=== PATIENT | male | born 1945 | race Caucasian/White ===

== ENCOUNTER 2017-10-20 17:02 | Emergency (ER) | payer MEDICARE, OTHER ==
[~2017-10-20] VITALS: Ht 177.8 cm; Wt 90.7 kg
[~2017-10-20 17:02] MED LIST: CYCL10 PO; HYDACE5 PO; NAPR500 PO; PRED20 PO
[2017-10-20] MEDS ORDERED: Percocet 5-3251 EACH PO (19:17)
[2017-10-20] MEDS ORDERED: LIDO700A20 TOP (19:17)
[2017-10-20] MEDS ORDERED: Valium5 MG PO (19:17)
== END 2017-10-20 20:22 | disposition home or self-care (01) ==
LOC: ER 17:02
DX: M54.5 Low back pain (principal); I10 Essential (primary) hypertension; K21.9 Gastro-esophageal reflux disease without esophagitis; Z88.2 Allergy status to sulfonamides; Z79.891 Long term (current) use of opiate analgesic; Z79.899 Other long term (current) drug therapy; Z79.1 Long term (current) use of non-steroidal anti-inflammatories (NSAID)
CPT/HCPCS: 96372; 99283; J1170

== ENCOUNTER → 2017-12-06 | Outpatient (CLI) | payer MEDICARE, OTHER ==
[~2017-12-06] MED LIST changes: +LIDO700A20 TOP; +Percocet 5-3251 EACH PO; +Valium5 MG PO
== END ==
LOC: LAB SHORT 18:00 → LAB 18:00
DX: R19.7 Diarrhea, unspecified (principal); R27.0 Ataxia, unspecified; R41.3 Other amnesia; R25.1 Tremor, unspecified
CPT/HCPCS: 87015; 87045; 87046; 87177; 87205; 87209; 87329; 87493; 87899

== ENCOUNTER → 2017-12-08 | Outpatient (CLI) | payer MEDICARE, OTHER | LOC: LAB 09:45 → LAB SHORT 09:45 | DX: R27.0 Ataxia, unspecified (principal); R41.3 Other amnesia; R25.1 Tremor, unspecified; R19.7 Diarrhea, unspecified | CPT/HCPCS: 87177; 87209 ==

== ENCOUNTER → 2018-05-28 | Outpatient (CLI) | payer MEDICARE, OTHER ==
[2018-05-31 15:30] LABS: Stool Occult Bld Immuno 1 Negative (NEGATIVE); Stool Occult Bld Immuno 2 Negative (NEGATIVE); Stool Occult Bld Immuno 3 Negative (NEGATIVE)
== END | disposition home or self-care (01) ==
LOC: LAB SHORT 15:00 → LAB 15:00
PROVIDERS: Family Medicine
DX: K92.1 Melena (principal)
CPT/HCPCS: 82274

== ENCOUNTER 2025-07-11 08:07 | Emergency (ER) | payer OTHER ==
[~2025-07-11] VITALS: Ht 185.4 cm; Wt 80.7 kg
[2025-07-11 08:42] LABS: BASOPHILS ABSOLUTE AUTO 0.04 K/mm3 (0.00-0.23); BASOPHILS PERCENT AUTO 1 % (0-2); EOSINOPHILS ABSOLUTE AUTO 0.03 K/mm3 (0.00-0.68); EOSINOPHILS PERCENT AUTO 1 % (0-6); Hematocrit 41.1 % (37.0-53.0); Hemoglobin 13.1 g/dL (13.5-17.5); IMMATURE GRAN ABSOLUTE AUTO 0.02 K/mm3 (0.00-0.10); IMMATURE GRAN PERCENT AUTO 0 % (0-1); LYMPHOCYTES ABSOLUTE AUTO 0.77 K/mm3 (0.84-5.20); LYMPHOCYTES PERCENT AUTO 14 % (21-46); MONOCYTES ABSOLUTE AUTO 0.47 K/mm3 (0.16-1.47); MONOCYTES PERCENT AUTO 9 % (4-13); Mean Corpuscular HGB Conc 31.9 g/dL (31.5-36.5); Mean Corpuscular Volume 91 fL (80-100); NEUTROPHILS ABSOLUTE AUTO 4.22 K/mm3 (1.96-9.15); NEUTROPHILS PERCENT AUTO 76 % (41-73); NRBC ABSOLUTE 0.00 K/mm3 (0.00-0.02); NRBC Auto 0.0 /100 WBC (0.0-0.2); Platelet Count 134 K/mm3 (150-400); RDW Coefficient Variation 13.0 % (11.7-14.2); RDW Standard Deviation 43.3 fL (35.1-46.3)
[2025-07-11] MEDS ORDERED: NS 1,000 ML IV SCH (08:55)
[2025-07-11 08:58] LABS: Alanine Aminotransfer (ALT/SGP 28.0 U/L (12-78); Albumin, Blood 3.2 g/dL (3.4-5.0); Albumin/Globulin Ratio 1.0 (0.8-1.8); Anion Gap 3.0 mmol/L (3-11); Aspartate Aminotrans (AST/SGOT 20.0 U/L (12-37); Bilirubin, Total 0.3 mg/dL (0.1-1.0); Blood Urea Nitrogen 20.0 mg/dL (8-24); CO2, Blood 32.0 mmol/L (21-32); Calcium, Blood 8.8 mg/dL (8.5-10.1); Chloride, Blood 107.0 mmol/L (98-108); Creatinine, Blood 1.17 mg/dL (0.60-1.20); Globulin, Blood 3.2 g/dL (2.2-4.0); Glucose, Blood 115.0 mg/dL (70-99); Potassium, Blood 4.0 mmol/L (3.5-5.5); Sodium, Blood 138.0 mmol/L (136-145); Total Protein, Blood 6.4 g/dL (6.4-8.2)
[2025-07-11 09:25] LABS: Source, Urine Clean Catch
[2025-07-11 09:31] LABS: Bilirubin, Urine Neg (Neg); Color, Urine Yellow (P-Yellow); Glucose Qualitative, Urine Neg (Neg); Ketones, Urine Neg (Neg); Leukocyte Esterase, Urine Neg (Neg); Protein, Urine 2+ (Neg); Specific Gravity, Urine 1.020 (1.003-1.022); Urobilinogen, Urine NORM (Normal)
[2025-07-11 09:40] LABS: White Blood Cells, Urine 0-2 /hpf (0-5)
[2025-07-11 10:45] VITALS: BP 105/62
== END 2025-07-11 10:58 | disposition home or self-care (01) ==
LOC: ER 08:07
PROVIDERS: Student in an Organized Health Care Education/Training Program
DX: R53.1 Weakness (principal); R73.9 Hyperglycemia, unspecified; E88.09 Other disorders of plasma-protein metabolism, not elsewhere classified; D64.9 Anemia, unspecified; D69.6 Thrombocytopenia, unspecified; D72.819 Decreased white blood cell count, unspecified; D72.810 Lymphocytopenia; R80.9 Proteinuria, unspecified; R31.9 Hematuria, unspecified; I10 Essential (primary) hypertension; K21.9 Gastro-esophageal reflux disease without esophagitis; Z87.891 Personal history of nicotine dependence; Z88.2 Allergy status to sulfonamides; Z79.899 Other long term (current) drug therapy
CPT/HCPCS: 71046; 80053; 81001; 84484; 85025; 93005; 93010; 96360; 96361; 99285-25; J7030

== ENCOUNTER 2025-07-22 08:47 | Inpatient (IN) | payer OTHER ==
[~2025-07-22] VITALS: Ht 185.4 cm; Wt 80.0 kg
[2025-07-22] MEDS ORDERED: PROPRANOLOL HCL60 MG PO (09:07)
[2025-07-22] MEDS ORDERED: AMLODIPINE-BEN1 EAC2 PO (09:07)
[2025-07-22] MEDS ORDERED: OMEP20ER PO (09:07)
[2025-07-22] MEDS ORDERED: CITALOPRAM HBR20 M9 PO (09:07)
[2025-07-22] MEDS ORDERED: Lidocaine 2% Jelly Uro-Jet UR ONE (09:15)
[2025-07-22 10:27] LABS: BASOPHILS ABSOLUTE AUTO 0.05 K/mm3 (0.00-0.23); BASOPHILS PERCENT AUTO 0 % (0-2); EOSINOPHILS ABSOLUTE AUTO 0.00 K/mm3 (0.00-0.68); EOSINOPHILS PERCENT AUTO 0 % (0-6); Hematocrit 33.7 % (37.0-53.0); Hemoglobin 11.3 g/dL (13.5-17.5); IMMATURE GRAN ABSOLUTE AUTO 0.07 K/mm3 (0.00-0.10); IMMATURE GRAN PERCENT AUTO 1 % (0-1); LYMPHOCYTES ABSOLUTE AUTO 0.82 K/mm3 (0.84-5.20); LYMPHOCYTES PERCENT AUTO 6 % (21-46); MONOCYTES ABSOLUTE AUTO 1.04 K/mm3 (0.16-1.47); MONOCYTES PERCENT AUTO 7 % (4-13); Mean Corpuscular HGB Conc 33.5 g/dL (31.5-36.5); Mean Corpuscular Volume 86 fL (80-100); NEUTROPHILS ABSOLUTE AUTO 12.11 K/mm3 (1.96-9.15); NEUTROPHILS PERCENT AUTO 86 % (41-73); NRBC ABSOLUTE 0.00 K/mm3 (0.00-0.02); NRBC Auto 0.0 /100 WBC (0.0-0.2); Platelet Count 248 K/mm3 (150-400); RDW Coefficient Variation 12.5 % (11.7-14.2); RDW Standard Deviation 39.3 fL (35.1-46.3)
[2025-07-22] MEDS ORDERED: CefTRIAXone Sodium 1,000 MG in NS 100 ML IV ONE (10:40)
[2025-07-22 10:50] LABS: Source, Urine Clean Catch
[2025-07-22] MEDS ORDERED: NS 1,000 ML IV SCH ×2 (10:50→12:00)
[2025-07-22 10:54] LABS: Bilirubin, Urine Neg (Neg); Color, Urine Yellow (P-Yellow); Glucose Qualitative, Urine Neg (Neg); Ketones, Urine Neg (Neg); Leukocyte Esterase, Urine 1+ (Neg); Protein, Urine 2+ (Neg); Specific Gravity, Urine 1.015 (1.003-1.022); Urobilinogen, Urine 2+ (Normal)
[2025-07-22 11:00] LABS: Alanine Aminotransfer (ALT/SGP 97.0 U/L (12-78); Albumin, Blood 2.7 g/dL (3.4-5.0); Albumin/Globulin Ratio 0.7 (0.8-1.8); Anion Gap 13.0 mmol/L (3-11); Aspartate Aminotrans (AST/SGOT 138.0 U/L (12-37); Bilirubin, Total 1.1 mg/dL (0.1-1.0); Blood Urea Nitrogen 22.0 mg/dL (8-24); CO2, Blood 24.0 mmol/L (21-32); Calcium, Blood 8.0 mg/dL (8.5-10.1); Chloride, Blood 95.0 mmol/L (98-108); Creatinine, Blood 1.19 mg/dL (0.60-1.20); Globulin, Blood 3.8 g/dL (2.2-4.0); Glucose, Blood 121.0 mg/dL (70-99); Potassium, Blood 4.3 mmol/L (3.5-5.5); Sodium, Blood 128.0 mmol/L (136-145); Total Protein, Blood 6.5 g/dL (6.4-8.2)
[2025-07-22 11:10] LABS: Red Blood Cells, Urine 25-50 /hpf (0-2)
[2025-07-22] MEDS ORDERED: Magnesium Hydroxide Conc 10 ML UDC PO PRN (11:45)
[2025-07-22] MEDS ORDERED: FLU VACC TS2025(65UP)/MF59C/PF 45 MCG/0.5 ML SYRINGE IM SCH (11:55)
[2025-07-22 13:34] LABS: Anion Gap 9.0 mmol/L (3-11); Blood Urea Nitrogen 22.0 mg/dL (8-24); CO2, Blood 27.0 mmol/L (21-32); Calcium, Blood 8.0 mg/dL (8.5-10.1); Chloride, Blood 97.0 mmol/L (98-108); Creatinine, Blood 1.16 mg/dL (0.60-1.20); Glucose, Blood 112.0 mg/dL (70-99); Potassium, Blood 4.1 mmol/L (3.5-5.5); Sodium, Blood 129.0 mmol/L (136-145)
--- NOTE | 2025-07-22 13:34 | NUR ---
PALLIATIVE CONSULT RECEIVED FOR AD/POLST. PT IS CURRENTLY A FULL CODE, IN WITH GLF/WEAKNESS.
[2025-07-22 14:28] VITALS: BP 119/59
[2025-07-22 15:31] LABS: Thyroid Stimulating Hormone 1.43 uIU/mL (0.360-4.800)
[2025-07-22 15:56] LABS: Osmolality, Serum 273.0 mos/KG (275-300)
--- NOTE | 2025-07-22 18:30 | NUR ---
ADMISSION AND SHIFT SUMMARY PATIENT ADMITTED WITH UTI. PATIENT STATES THAT HE HAS BEEN FALLING AT HOME AND HAS DECLINED OVER THE LAST FEW WEEKS. PATIENT STATES THAT HE HAS BEEN IN THE ED A FEW TIMES AND DISCHARGED HOME. PATIENT WEAK, STATES THAT HE HAS NOT REALLY EATEN OR DRANK ANYTHING FOR DAYS. BRUISING AND ABRASIONS NOTED ON HIS FACE. PATIENT STATES THAT HE HAD FALLEN MULTIPLE TIMES AT HOME. ER PLACED A GRIFFIN BECAUSE OF URINARY RETENTION. LEG BAG ATTACHED TO CATHETER ON ARRIVAL TO MEDICAL FLOOR WITH DARK TEA COLORED URINE. CHANGED TO DRAINAGE BAG. NO OTHER SKIN ISSUES NOTED. PATIENT POSITIVE FOR UTI. PT AND OT TO EVALUATE.
[2025-07-22 19:42] LABS: Anion Gap 9.0 mmol/L (3-11); Blood Urea Nitrogen 22.0 mg/dL (8-24); CO2, Blood 27.0 mmol/L (21-32); Calcium, Blood 8.0 mg/dL (8.5-10.1); Chloride, Blood 97.0 mmol/L (98-108); Creatinine, Blood 1.06 mg/dL (0.60-1.20); Glucose, Blood 117.0 mg/dL (70-99); Potassium, Blood 3.9 mmol/L (3.5-5.5); Sodium, Blood 129.0 mmol/L (136-145)
[2025-07-22 19:45] VITALS: BP 112/60
[2025-07-22] MEDS ORDERED: Lactobacil 2-S.Thermo-Bifido 1 1 Cap PO SCH (21:00)
[2025-07-23 00:17] VITALS: BP 104/60
--- NOTE | 2025-07-23 00:27 | NUR ---
GRIFFIN AT APPROX 0010 ORDER RUNNER CALLED THIS RN INTO PT RM. PT HAD PULLED OUT GRIFFIN CATH W/BALLOON INTACT. PT REPORTING DISCOMFORT AT HIS PENIS, SM AMOUNT PINKISH TO RED DRAINAGE NOTED ON ACUNA. PT AOX3-STATES HE IS FORGETFUL @TIMES, & DOESNT REMEMBER PULLING OUT THE CATHETER. VSS, PT CLEANSED, ATTENDS APPLIED, WILL INFORM PRIMARY RN OF GRIFFIN REMOVAL.
[2025-07-23 01:39] LABS: Anion Gap 10.0 mmol/L (3-11); Blood Urea Nitrogen 21.0 mg/dL (8-24); CO2, Blood 24.0 mmol/L (21-32); Calcium, Blood 7.9 mg/dL (8.5-10.1); Chloride, Blood 99.0 mmol/L (98-108); Creatinine, Blood 1.07 mg/dL (0.60-1.20); Glucose, Blood 115.0 mg/dL (70-99); Potassium, Blood 3.8 mmol/L (3.5-5.5); Sodium, Blood 129.0 mmol/L (136-145)
--- NOTE | 2025-07-23 03:58 | NUR ---
SHIFT SUMMARY ADMITTED FOR UTI. FULL CODE. IV ANTIB RX ARE SCHEDULED. HE IS A&O X3, BUT HAS PERIODS OF CONFUSION. HE DID PULL OUT HIS GRIFFIN THIS SHIFT. HE HAS URINATED SINCE. INCONTINENT, ATTENDS IN PLACE. MINIMAL BLOOD LOSS FROM PENIS. HE NOTES SOME PAIN IN THE AFFECTED AREA. HE DOES NOT KNOW OR REMEMBER WHY HE PULLED OUT THE GRIFFIN. TELEMETRY: NSR @ 70 BPM. REGULAR DIET, ON RA. HX: ESSENTIAL TREMORS, GLF'S.
[2025-07-23] MEDS ORDERED: Vancomycin (Pharmacy Consult) IV PRN (04:15)
[2025-07-23] MEDS ORDERED: NS 250 ML IV PRN (04:55)
[2025-07-23 06:58] LABS: BASOPHILS ABSOLUTE AUTO 0.06 K/mm3 (0.00-0.23); BASOPHILS PERCENT AUTO 1 % (0-2); EOSINOPHILS ABSOLUTE AUTO 0.01 K/mm3 (0.00-0.68); EOSINOPHILS PERCENT AUTO 0 % (0-6); Hematocrit 30.6 % (37.0-53.0); Hemoglobin 9.9 g/dL (13.5-17.5); IMMATURE GRAN ABSOLUTE AUTO 0.07 K/mm3 (0.00-0.10); IMMATURE GRAN PERCENT AUTO 1 % (0-1); LYMPHOCYTES ABSOLUTE AUTO 1.77 K/mm3 (0.84-5.20); LYMPHOCYTES PERCENT AUTO 14 % (21-46); MONOCYTES ABSOLUTE AUTO 1.10 K/mm3 (0.16-1.47); MONOCYTES PERCENT AUTO 9 % (4-13); Mean Corpuscular HGB Conc 32.4 g/dL (31.5-36.5); Mean Corpuscular Volume 87 fL (80-100); NEUTROPHILS ABSOLUTE AUTO 9.41 K/mm3 (1.96-9.15); NEUTROPHILS PERCENT AUTO 76 % (41-73); NRBC ABSOLUTE 0.00 K/mm3 (0.00-0.02); NRBC Auto 0.0 /100 WBC (0.0-0.2); Platelet Count 202 K/mm3 (150-400); RDW Coefficient Variation 12.6 % (11.7-14.2); RDW Standard Deviation 40.6 fL (35.1-46.3)
[2025-07-23 07:23] LABS: Alanine Aminotransfer (ALT/SGP 95.0 U/L (12-78); Albumin, Blood 2.4 g/dL (3.4-5.0); Albumin/Globulin Ratio 0.7 (0.8-1.8); Anion Gap 10.0 mmol/L (3-11); Aspartate Aminotrans (AST/SGOT 117.0 U/L (12-37); Bilirubin, Total 0.9 mg/dL (0.1-1.0); Blood Urea Nitrogen 20.0 mg/dL (8-24); CO2, Blood 24.0 mmol/L (21-32); Calcium, Blood 7.7 mg/dL (8.5-10.1); Chloride, Blood 99.0 mmol/L (98-108); Creatinine, Blood 1.03 mg/dL (0.60-1.20); Globulin, Blood 3.3 g/dL (2.2-4.0); Glucose, Blood 104.0 mg/dL (70-99); Potassium, Blood 3.7 mmol/L (3.5-5.5); Sodium, Blood 129.0 mmol/L (136-145); Total Protein, Blood 5.7 g/dL (6.4-8.2)
--- NOTE | 2025-07-23 07:32 | NUR ---
[facility] NOTIFY- SPOKE TO DR. VALLADARES TO NOTIFY. ADVISES NO CHANGES TO PLAN OF CARE.
[2025-07-23 07:47] VITALS: BP 117/70
[2025-07-23] MEDS ORDERED: Enoxaparin 40 MG/0.4 ML SYR SC SCH (09:00)
[2025-07-23] MEDS ORDERED: CefTRIAXone Sodium 1,000 MG in NS 100 ML IV SCH (09:00)
[2025-07-23] MEDS ORDERED: Lidocaine 2% Jelly Uro-Jet UR ONE (09:15)
[2025-07-23 12:07] VITALS: BP 102/62
[2025-07-23 16:40] VITALS: BP 102/64
[2025-07-23] MEDS ORDERED: Propofol 10mg/ml 20 ml Vial (Procedural) IV ONE (16:57)
--- NOTE | 2025-07-23 20:06 | NUR ---
SHIFT SUMMARY PATIENT ALERT AND INTERACTIVE BUT DEPRESSED. PATIENT VERBALIZING THAT HE FEELS LIKE HE IS DYING AND NOT GOING TO MAKE IT OUT OF THE HOSPITAL. PATIENT REQUESTING TO HAVE TILE FITTER PROVIDE LAST RIGHTS/ANOINTING OF THE SICK. ATTEMPTED TO CALL EPISCOPALIAN [employer]GL[employer]. 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 PATIENT UP OOB WITH THERAPY TODAY. PATIENT WEAK BUT ABLE TO AMBULATE. ESSENTIAL TREMORS CONTINUE TO BE PRESENT. PATIENT HAD SOME RETENTION THIS MORNING AND WAS PREPARING TO STRAIGHT CATH AND PATIENT WAS ABLE TO VOID. CONTINUE TO MONITOR FOR RETENTION. SUPPLIES REMAIN IN THE ROOM IF NEEDED. BRUISING AND ABRASIONS ON FACE IMPROVING. CASE MANAGEMENT UPDATED RELATED TO DISCHARGE CONCERNS BECAUSE PATIENT LIVES ALONE AND FREQUENT FALLS PRIOR TO ADMISSION
[2025-07-23 21:15] VITALS: BP 109/58
[2025-07-24 00:26] VITALS: BP 97/63
[2025-07-24 04:14] VITALS: BP 106/63
--- NOTE | 2025-07-24 06:36 | NUR ---
SHIFT SUMMARY A&OX4 WITH INTERMITTENT CONFUSION/FORGETFULLNESS. PT ABLE TO MAKE NEEDS KNOWN. DID HAVE SOME LOWER BACK PAIN AT START OF SHIFT. PT REPOSITIONED FOR COMFORT AND MEDICATED PER EMAR. PT WAS ABLE REST FOR AWHILE AFTER PAIN MEDICATION. PUREWICK IS IN PLACE AND DRAINING. PT FELT LIKE HE NEEDED TO HAVE A BM SO PT TRANSFERRED W/FWW TO BS. PT HAD GAS BUT WAS NOT ABLE TO HAVE A BM. HE HAS BEEN PLEASANT AND COOPERATIVE WITH CARE. HIS ESSENTIAL TREMORS REMAIN PRESENT, ESPECIALLY WITH MOVEMENT. HE IS TOLERATING HIS VANCOMYCIN WELL W/O COMPLAINT. PT IS CURRENTLY RESTING IN HIS BED AT LOWEST POSITION WITH CALL LIGHT WITHIN REACH.
[2025-07-24 07:18] LABS: BASOPHILS ABSOLUTE AUTO 0.06 K/mm3 (0.00-0.23); BASOPHILS PERCENT AUTO 1 % (0-2); EOSINOPHILS ABSOLUTE AUTO 0.08 K/mm3 (0.00-0.68); EOSINOPHILS PERCENT AUTO 1 % (0-6); Hematocrit 31.4 % (37.0-53.0); Hemoglobin 10.2 g/dL (13.5-17.5); IMMATURE GRAN ABSOLUTE AUTO 0.05 K/mm3 (0.00-0.10); IMMATURE GRAN PERCENT AUTO 1 % (0-1); LYMPHOCYTES ABSOLUTE AUTO 1.20 K/mm3 (0.84-5.20); LYMPHOCYTES PERCENT AUTO 14 % (21-46); MONOCYTES ABSOLUTE AUTO 0.74 K/mm3 (0.16-1.47); MONOCYTES PERCENT AUTO 8 % (4-13); Mean Corpuscular HGB Conc 32.5 g/dL (31.5-36.5); Mean Corpuscular Volume 88 fL (80-100); NEUTROPHILS ABSOLUTE AUTO 6.66 K/mm3 (1.96-9.15); NEUTROPHILS PERCENT AUTO 76 % (41-73); NRBC ABSOLUTE 0.00 K/mm3 (0.00-0.02); NRBC Auto 0.0 /100 WBC (0.0-0.2); Platelet Count 188 K/mm3 (150-400); RDW Coefficient Variation 12.2 % (11.7-14.2); RDW Standard Deviation 39.5 fL (35.1-46.3)
[2025-07-24 07:34] LABS: Anion Gap 7.0 mmol/L (3-11); Blood Urea Nitrogen 20.0 mg/dL (8-24); CO2, Blood 27.0 mmol/L (21-32); Calcium, Blood 8.4 mg/dL (8.5-10.1); Chloride, Blood 103.0 mmol/L (98-108); Creatinine, Blood 1.04 mg/dL (0.60-1.20); Glucose, Blood 109.0 mg/dL (70-99); Potassium, Blood 3.5 mmol/L (3.5-5.5); Sodium, Blood 133.0 mmol/L (136-145)
[2025-07-24 07:49] VITALS: BP 111/67
--- NOTE | 2025-07-24 11:40 | NUR ---
[facility] NURSING MECHANICAL AND [employer]O BODY CAR CHECKER WAS ABLE TO CONTACT A TELECOMMUNICATIONS CONSULTANT. HE DID COME AND SEE PT. CARE ONGOING.
[2025-07-24 15:30] VITALS: BP 108/61
[2025-07-24 16:18] LABS: Vancomycin, Trough 18.2 ug/mL (5.0-10.0)
--- NOTE | 2025-07-24 18:39 | NUR ---
NOTE PT MORE INMTERACTIVE TODAY. STILL MAKING COMMENTS LIKE, " I WANT YOU TO PUT ME DOWN." "THE YOUNGER GENRATION JUST WANTS ME TO ." PT EATING SMALL AMOUNTS. HE DID ASK FOR ICE CREAM TONIGHT. VSS. HE IS WORRIED ABOUT HIS DOG. PT HAVING TROUBLE HOLDING UTENSILS D/T HAND TREMOR. NEEDS MEALS ASSIST. LIDS ON CUPS. P/T DID SEE HIM TODAY. BED LOW AND LOCKED. CALL LIGHT WITH INREACH.
[2025-07-24 19:35] VITALS: BP 115/77
[2025-07-25] VITALS (7 sets, daily range): BP systolic 110–123; BP diastolic 66–79
[2025-07-25 05:35] LABS: BASOPHILS ABSOLUTE AUTO 0.08 K/mm3 (0.00-0.23); BASOPHILS PERCENT AUTO 1 % (0-2); EOSINOPHILS ABSOLUTE AUTO 0.13 K/mm3 (0.00-0.68); EOSINOPHILS PERCENT AUTO 2 % (0-6); Hematocrit 32.4 % (37.0-53.0); Hemoglobin 10.8 g/dL (13.5-17.5); IMMATURE GRAN ABSOLUTE AUTO 0.05 K/mm3 (0.00-0.10); IMMATURE GRAN PERCENT AUTO 1 % (0-1); LYMPHOCYTES ABSOLUTE AUTO 1.20 K/mm3 (0.84-5.20); LYMPHOCYTES PERCENT AUTO 15 % (21-46); MONOCYTES ABSOLUTE AUTO 0.59 K/mm3 (0.16-1.47); MONOCYTES PERCENT AUTO 7 % (4-13); Mean Corpuscular HGB Conc 33.3 g/dL (31.5-36.5); Mean Corpuscular Volume 86 fL (80-100); NEUTROPHILS ABSOLUTE AUTO 6.11 K/mm3 (1.96-9.15); NEUTROPHILS PERCENT AUTO 75 % (41-73); NRBC ABSOLUTE 0.00 K/mm3 (0.00-0.02); NRBC Auto 0.0 /100 WBC (0.0-0.2); Platelet Count 221 K/mm3 (150-400); RDW Coefficient Variation 12.4 % (11.7-14.2); RDW Standard Deviation 39.4 fL (35.1-46.3)
[2025-07-25 06:14] LABS: Alanine Aminotransfer (ALT/SGP 87.0 U/L (12-78); Albumin, Blood 2.4 g/dL (3.4-5.0); Albumin/Globulin Ratio 0.7 (0.8-1.8); Anion Gap 7.0 mmol/L (3-11); Aspartate Aminotrans (AST/SGOT 75.0 U/L (12-37); Bilirubin, Total 0.6 mg/dL (0.1-1.0); Blood Urea Nitrogen 16.0 mg/dL (8-24); CO2, Blood 27.0 mmol/L (21-32); Calcium, Blood 8.6 mg/dL (8.5-10.1); Chloride, Blood 105.0 mmol/L (98-108); Creatinine, Blood 1.0 mg/dL (0.60-1.20); Globulin, Blood 3.6 g/dL (2.2-4.0); Glucose, Blood 107.0 mg/dL (70-99); Potassium, Blood 3.4 mmol/L (3.5-5.5); Sodium, Blood 136.0 mmol/L (136-145); Total Protein, Blood 6.0 g/dL (6.4-8.2)
--- NOTE | 2025-07-25 06:18 | NUR ---
SHIFT SUMMARY A&OX4. ABLE TO MAKE NEEDS KNOWN. DENIES PAIN. GOT UP TO BSC AND HAD A VERY SMALL BM. PT VOCALIZED HOW NICE IT FELT TO BE OUT OF BED. HE IS TOLERATING HIS VACOMYCIN INFUSIONS WELL. NO NEW EVENTS. PT WAS ABLE TO REST COMFORTABLY THOUGHOUT THE NIGHT. CURRENTLY PT IS SLEEPING IN BED AT LOWEST POSITION WITH CALL LIGHT WITHIN REACH.
[2025-07-25] MEDS ORDERED: CefTRIAXone Sodium 2,000 MG in NS 100 ML IV SCH (09:00)
[2025-07-26 03:46] VITALS: BP 129/74
[2025-07-26 05:37] LABS: BASOPHILS ABSOLUTE AUTO 0.06 K/mm3 (0.00-0.23); BASOPHILS PERCENT AUTO 1 % (0-2); EOSINOPHILS ABSOLUTE AUTO 0.19 K/mm3 (0.00-0.68); EOSINOPHILS PERCENT AUTO 2 % (0-6); Hematocrit 32.9 % (37.0-53.0); Hemoglobin 10.7 g/dL (13.5-17.5); IMMATURE GRAN ABSOLUTE AUTO 0.06 K/mm3 (0.00-0.10); IMMATURE GRAN PERCENT AUTO 1 % (0-1); LYMPHOCYTES ABSOLUTE AUTO 0.93 K/mm3 (0.84-5.20); LYMPHOCYTES PERCENT AUTO 11 % (21-46); MONOCYTES ABSOLUTE AUTO 0.47 K/mm3 (0.16-1.47); MONOCYTES PERCENT AUTO 6 % (4-13); Mean Corpuscular HGB Conc 32.5 g/dL (31.5-36.5); Mean Corpuscular Volume 87 fL (80-100); NEUTROPHILS ABSOLUTE AUTO 6.61 K/mm3 (1.96-9.15); NEUTROPHILS PERCENT AUTO 80 % (41-73); NRBC ABSOLUTE 0.00 K/mm3 (0.00-0.02); NRBC Auto 0.0 /100 WBC (0.0-0.2); Platelet Count 256 K/mm3 (150-400); RDW Coefficient Variation 12.5 % (11.7-14.2); RDW Standard Deviation 39.8 fL (35.1-46.3)
[2025-07-26 06:02] LABS: Anion Gap 9.0 mmol/L (3-11); Blood Urea Nitrogen 12.0 mg/dL (8-24); CO2, Blood 26.0 mmol/L (21-32); Calcium, Blood 8.5 mg/dL (8.5-10.1); Chloride, Blood 105.0 mmol/L (98-108); Creatinine, Blood 0.89 mg/dL (0.60-1.20); Glucose, Blood 109.0 mg/dL (70-99); Potassium, Blood 3.8 mmol/L (3.5-5.5); Sodium, Blood 136.0 mmol/L (136-145)
--- NOTE | 2025-07-26 06:08 | NUR ---
PT WAS A&OX4 AT THE BEGINNING OF THE SHIFT, IN THE MIDDLE OF THE SHIFT PT BECAME CONFUSED CALLING OUT FOR PEOPLE. STAFF UNABLE TO REORIENT PT AT TIMES.
[2025-07-26 08:25] VITALS: BP 101/67
[2025-07-26 16:15] VITALS: BP 134/76
--- NOTE | 2025-07-26 18:37 | NUR ---
SHIFT SUMMARY PT IS A/OX4, FORGETFUL AT TIMES. PT INCREASINGLY MORE CONFUSED ABOUT 1800 THIS EVENING. PT OUT OF BED AND STATING THAT AN EXPLOSION HAD OCCURRED ACROSS THE CHANG, HOWEVER WAS STILL ORIENTED TO PLACE, TIME, AND PERSON AND EASILY REDIRECTABLE. UP WITH SBA WITH FWW. USING URINAL AT BEDSIDE. ON TELE RUNNING NORMAL SINUS RYTHYM IN THE 80'S.
[2025-07-26 19:47] VITALS: BP 121/78
[2025-07-26 20:50] VITALS: BP 112/65
[2025-07-26 23:18] VITALS: BP 103/88
[2025-07-27 03:12] VITALS: BP 132/68
--- NOTE | 2025-07-27 06:07 | NUR ---
NO ACUTE EVENTS OVERNIGHT. PT WAS TRANSFERRED TO PCU FROM MEDICAL FLOOR PER PHYSICIAN'S REQUEST D/T PT HAVING A OEDLL TODAY. PT HAS BEEN NPO SINCE MIDNIGHT. PT NEEDS SBA WITH FWW TO BATHROOM. PT USES URINAL WHILE IN BATHROOM APPROPRIATELY. PT HAS ESSENTIAL TREMORS. EXPRESSES NEEDS AND CALLS APPROPRIATELY. BED ALARM ON. BED LOCKED IN LOWEST POSITION. CALL LIGHT WITHIN REACH.
[2025-07-27 07:51] VITALS: BP 120/81
[2025-07-27 11:54] VITALS: BP 115/65
[2025-07-27] MEDS ORDERED: Lidocaine 2% Viscous Soln 20 ML,Nystatin 100,000 Unit/ml Susp 20 ML,Mag Hydrox/Al Hydro... MT SCH (12:00)
[2025-07-27] MEDS ORDERED: Petrolatum/Mineral Oil/Lanolin 1 APPLIC/50 GM Tube TOP SCH (14:00)
[2025-07-27 15:21] VITALS: BP 121/63
--- NOTE | 2025-07-27 17:32 | NUR ---
END OF SHIFT SUMMARY PT IS A/O X4, ABLE TO MAKE NEEDS KNOWN AND CAN MOVE EXTREMIITES EQUALLY AND BILATERALLY. PT IS AFEBRILE AND HAS TREMORS AT BASELINE. CONTINUOUS CARDIAC MONITORING IN PLACE SHOWING SR, MAP >65, HR IN THE 70'S-80'S. PT IS ON RA WITH SP02 >92%. PT WILL BE NPO AT MIDNIGHT FOR ODELL PROCEDURE. PT WORKED WITH OT AND TOLERATED IT WELL. PT USES THE URINAL INDEPENDENTLY. PIV IN THE L WRIST IS IN PLACE. BED IN LOWEST POSITION, CALL LIGHT IN REACH, WILL REPORT TO ONCOMING SHIFT.
[2025-07-27 20:40] VITALS: BP 114/78
[2025-07-27 23:35] VITALS: BP 118/76
[2025-07-28] VITALS (31 sets, daily range): BP systolic 111–146; BP diastolic 65–108
--- NOTE | 2025-07-28 05:32 | NUR ---
PT STABLE THROUGHOUT SHIFT. NO C/O CP OR SOB. PT REMAINED AOX4, INDEPENDENT AT BEDSIDE WITH URINAL. PT INTERMITTENTLY USING CALL LIGHT. PT ATTEMPS TO BE VERY INDEPENDENT, BED ALARM ON. PT WAS EDUCATED ON FALL RISK, NEEDS REINFORCEMENT. PT HAS BEEN NPO SINCE 0000 FOR ODELL AND ENT CLEARANCE FOR ODELL PROCEDURE.
[2025-07-28] MEDS ORDERED: Oxymetazoline 0.05% Nasal Relief Spray 15mL BTL PRN (09:45)
[2025-07-28] MEDS ORDERED: Lidocaine HCl 4% Topical Soln 5 MLUDC TOP ONE (09:50)
[2025-07-28] MEDS ORDERED: Benzocaine Oral Spray 0.5ML UD ONE (13:24)
[2025-07-28] MEDS ORDERED: NS 1,000 ML IV ONE (13:33)
--- NOTE | 2025-07-28 14:03 | NUR ---
UPDATE PT DOWN TO HEART CENTER AT 1330 VIA WHEELCHAIR AND ON RA. PT ABLE TO TRANSFER TO WEELCHAIR WITH MINIMAL ASSISTANCE, TOLERATED WELL.
--- NOTE | 2025-07-28 15:05 | NUR ---
PT ALERT AND TALKING, ASKING WHEN HE CAN GO BACK TO HIS ROOM. DR WAKEFIELD HERE AT THIS TIME TALKING WITH PT. PT WILL BE BACK TO ROOM PER W/C.
--- NOTE | 2025-07-28 19:17 | NUR ---
END OF SHIFT SUMMARY PT IS A/O X4, ABLE TO MAKE NEEDS KNOWN AND CAN MOVE EXTREMITIES EQUALLY AND BILATERALLY. PT IS AFEBRILE. CONTINUOUS CARDAIC MONITORING IN PLACE SHOWING SR, MAP >65, HR IN THE 80'S-90'S. PT IS ABLE TO TOLERATE PO INTAKE WELL. PT CAN USE URINAL INDEPENDENTLY. POWERGLIDE IN THE RUE. PLAN TO DISCHARGE 07/29. BED IN LOWEST POSITION, CALL LIGHT IN REACH, WILL REPORT TO ONCOMING SHIFT.
[2025-07-29 03:31] VITALS: BP 120/69
[2025-07-29 03:45] LABS: BASOPHILS ABSOLUTE AUTO 0.06 K/mm3 (0.00-0.23); BASOPHILS PERCENT AUTO 1 % (0-2); EOSINOPHILS ABSOLUTE AUTO 0.19 K/mm3 (0.00-0.68); EOSINOPHILS PERCENT AUTO 3 % (0-6); Hematocrit 33.8 % (37.0-53.0); Hemoglobin 10.7 g/dL (13.5-17.5); IMMATURE GRAN ABSOLUTE AUTO 0.08 K/mm3 (0.00-0.10); IMMATURE GRAN PERCENT AUTO 1 % (0-1); LYMPHOCYTES ABSOLUTE AUTO 1.21 K/mm3 (0.84-5.20); LYMPHOCYTES PERCENT AUTO 16 % (21-46); MONOCYTES ABSOLUTE AUTO 0.51 K/mm3 (0.16-1.47); MONOCYTES PERCENT AUTO 7 % (4-13); Mean Corpuscular HGB Conc 31.7 g/dL (31.5-36.5); Mean Corpuscular Volume 89 fL (80-100); NEUTROPHILS ABSOLUTE AUTO 5.60 K/mm3 (1.96-9.15); NEUTROPHILS PERCENT AUTO 73 % (41-73); NRBC ABSOLUTE 0.00 K/mm3 (0.00-0.02); NRBC Auto 0.0 /100 WBC (0.0-0.2); Platelet Count 276 K/mm3 (150-400); RDW Coefficient Variation 13.0 % (11.7-14.2); RDW Standard Deviation 41.7 fL (35.1-46.3)
[2025-07-29 04:15] LABS: Anion Gap 8.0 mmol/L (3-11); Blood Urea Nitrogen 15.0 mg/dL (8-24); CO2, Blood 28.0 mmol/L (21-32); Calcium, Blood 8.8 mg/dL (8.5-10.1); Chloride, Blood 104.0 mmol/L (98-108); Creatinine, Blood 0.96 mg/dL (0.60-1.20); Glucose, Blood 108.0 mg/dL (70-99); Potassium, Blood 3.9 mmol/L (3.5-5.5); Sodium, Blood 136.0 mmol/L (136-145)
--- NOTE | 2025-07-29 06:16 | NUR ---
SHIFT SUMMARY: PT A&OX4 CALM AND COOPERATIVE. ABLE TO MAKE NEEDS KNOWN AND CALLS APPROPRIATELY. VSS ON RA. PT USES URINAL INDEPENDENTLY. NO OTHER SIGNIFICANT CHANGES TO REPORT. PLAN IS TO DISCHARGE TODAY. BED IS LOW AND LOCKED. CALL LIGHT WITHIN REACH. CONTINUE WITH CURRENT PLAN OF CARE.
[2025-07-29] MEDS ORDERED: APHEN325 M1 PO (07:57)
[2025-07-29] MEDS ORDERED: AMLO5 PO (07:57)
[2025-07-29] MEDS ORDERED: CEFTRIAXONE2 G1 IV (07:58)
[2025-07-29] MEDS ORDERED: Flomax0.4 MG PO (07:58)
[2025-07-29] MEDS ORDERED: VISBIOME 112.51 EACH PO (07:59)
[2025-07-29 08:28] VITALS: BP 113/62
--- NOTE | 2025-07-29 11:42 | NUR ---
SHIFT SUMMARY AND DISCHARGE PATIENT AOX4 ABLE TO MAKE NEEDS KNOWN DENIES CP OR SOB. VITALS ARE STABLE AND TOLERATING MEALS. WORKED WITH PT BEFORE DISCHARGE. EDUCATED PATIENT ON ALL DISCHARGE INSTRUCTIONS AND HE UNDERSTANDS. DISCHARGES WITH POWERGLIDE IV FOR ABX.
== END 2025-07-29 11:46 | disposition home or self-care (01) | DRG 871 ==
LOC: ER 08:47 → MEDS 08:48 → PCU 07-23 13:28 → MEDS 07-23 13:29 → PCU 07-26 20:46
PROVIDERS: Family Medicine; Internal Medicine; Student in an Organized Health Care Education/Training Program; ADMIT Internal Medicine
PROC: 3E03329 Introduction of Other Anti-infective into Peripheral Vein, Percutaneous Approach (ICD-10-PCS; principal; 2025-07-22)
PROC: 0T9B70Z Drainage of Bladder with Drainage Device, Via Natural or Artificial Opening (ICD-10-PCS; 2025-07-23)
PROC: 0CJY8ZZ Inspection of Mouth and Throat, Via Natural or Artificial Opening Endoscopic (ICD-10-PCS; 2025-07-28)
PROC: B24BZZ4 Ultrasonography of Heart with Aorta, Transesophageal (ICD-10-PCS; 2025-07-28)
DX: A40.8 Other streptococcal sepsis (principal); I33.0 Acute and subacute infective endocarditis; E87.1 Hypo-osmolality and hyponatremia; I50.32 Chronic diastolic (congestive) heart failure; A41.89 Other specified sepsis; I08.0 Rheumatic disorders of both mitral and aortic valves; D64.9 Anemia, unspecified; K21.9 Gastro-esophageal reflux disease without esophagitis; R33.9 Retention of urine, unspecified; E87.8 Other disorders of electrolyte and fluid balance, not elsewhere classified; R74.01 Elevation of levels of liver transaminase levels; I11.0 Hypertensive heart disease with heart failure; F03.A0 Unspecified dementia, mild, without behavioral disturbance, psychotic disturbance, mood disturbance, and anxiety; I45.10 Unspecified right bundle-branch block; E78.00 Pure hypercholesterolemia, unspecified; D49.0 Neoplasm of unspecified behavior of digestive system; E87.6 Hypokalemia; Z87.891 Personal history of nicotine dependence; Z88.2 Allergy status to sulfonamides
CPT/HCPCS: 36415; 51701; 51798; 70450; 70491; 71045; 71046; 71100; 72100; 80048; 80053; 80202; 81001; 83605; 83930; 83935; 84300; 84443; 84484; 85025; 87040; 87086; 87184; 93005; 93010; 93306; 93312; 93325; 96361; 96365-59; 96366; 96367; 96372; 97110; 97116; 97161; 97166; 97530; 97535; 99285-25; A9270; G0378; J0696; J1650; J2704; J3373; J7030; J7040; J7050; Q9967

== ENCOUNTER 2025-07-30 09:32 | Day surgery (SDC) | payer OTHER ==
[~2025-07-30 09:32] MED LIST changes: +ACET500; +AMLO5 PO; +AMLODIPINE-BEN1 EAC2 PO; +CEFTRIAXONE2 G1 IV; +CITALOPRAM HBR20 M9 PO; +Flomax0.4 MG PO; +OMEP20ER PO; +PROPRANOLOL HCL60 MG PO; +VISBIOME 112.51 EACH PO
[2025-07-30 16:35] VITALS: BP 122/72
[2025-07-30] MEDS ORDERED: CefTRIAXone Sodium 2,000 MG in NS 100 ML IV SCH (16:40)
== END 2025-07-30 17:25 | disposition home or self-care (01) ==
LOC: ATC 09:32
DX: I33.0 Acute and subacute infective endocarditis (principal); I10 Essential (primary) hypertension; K21.9 Gastro-esophageal reflux disease without esophagitis; Z87.891 Personal history of nicotine dependence; Z88.2 Allergy status to sulfonamides
CPT/HCPCS: 96365; J0696

== ENCOUNTER 2025-07-31 01:04 | Day surgery (SDC) | payer OTHER ==
[2025-07-31] MEDS ORDERED: CefTRIAXone Sodium 2,000 MG in NS 100 ML IV SCH (06:00)
[2025-07-31 14:45] VITALS: BP 120/67
== END 2025-07-31 14:57 | disposition home or self-care (01) ==
LOC: ATC 01:04
DX: I33.0 Acute and subacute infective endocarditis (principal)
CPT/HCPCS: 96365; J0696

== ENCOUNTER 2025-08-01 04:11 | Day surgery (SDC) | payer OTHER ==
[~2025-08-01 04:11] MED LIST changes: +CefTRIAXone Sodium 2,000 MG in NS 100 ML IV SCH
[2025-08-01 14:32] VITALS: BP 121/63
== END 2025-08-01 14:53 | disposition home or self-care (01) ==
LOC: ATC 04:11
DX: I33.0 Acute and subacute infective endocarditis (principal); I10 Essential (primary) hypertension; K21.9 Gastro-esophageal reflux disease without esophagitis; D64.9 Anemia, unspecified; Z79.899 Other long term (current) drug therapy; Z87.891 Personal history of nicotine dependence; Z88.2 Allergy status to sulfonamides
CPT/HCPCS: 96365; J0696

== ENCOUNTER 2025-08-02 02:40 | Day surgery (SDC) | payer OTHER ==
[2025-08-02 14:37] VITALS: BP 118/65
[2025-08-06] MEDS ORDERED: Primidone50 MG PO (00:13)
[2025-08-06] MEDS ORDERED: PROP60 PO (00:14)
== END 2025-08-02 14:53 | disposition home or self-care (01) ==
LOC: ATC 02:40
DX: I33.0 Acute and subacute infective endocarditis (principal); I10 Essential (primary) hypertension; K21.9 Gastro-esophageal reflux disease without esophagitis; Z87.891 Personal history of nicotine dependence; Z88.2 Allergy status to sulfonamides; Z79.899 Other long term (current) drug therapy
CPT/HCPCS: 96365; J0696

== ENCOUNTER 2025-08-03 02:45 | Day surgery (SDC) | payer OTHER ==
[2025-08-03 14:42] VITALS: BP 116/65
[2025-08-06] MEDS ORDERED: Primidone50 MG PO (00:13)
[2025-08-06] MEDS ORDERED: PROP60 PO (00:14)
== END 2025-08-03 15:02 | disposition home or self-care (01) ==
LOC: ATC 02:45
DX: I33.0 Acute and subacute infective endocarditis (principal); I10 Essential (primary) hypertension; K21.9 Gastro-esophageal reflux disease without esophagitis; Z87.891 Personal history of nicotine dependence; Z88.2 Allergy status to sulfonamides
CPT/HCPCS: 96365; J0696

== ENCOUNTER 2025-08-04 00:46 | Day surgery (SDC) | payer OTHER ==
[~2025-08-04 00:46] MED LIST changes: -CefTRIAXone Sodium 2,000 MG in NS 100 ML IV SCH
[2025-08-04] MEDS ORDERED: CefTRIAXone Sodium 2,000 MG in NS 100 ML IV SCH (01:00)
[2025-08-04 14:20] VITALS: BP 96/80
[2025-08-06] MEDS ORDERED: Primidone50 MG PO (00:13)
[2025-08-06] MEDS ORDERED: PROP60 PO (00:14)
[2025-08-06] MEDS ORDERED: DILTIAZEM 24HR120 M2 PO (13:54)
== END 2025-08-04 14:50 | disposition home or self-care (01) ==
LOC: ATC 00:46
DX: I33.0 Acute and subacute infective endocarditis (principal); I10 Essential (primary) hypertension; K21.9 Gastro-esophageal reflux disease without esophagitis; D64.9 Anemia, unspecified; Z87.891 Personal history of nicotine dependence; Z88.2 Allergy status to sulfonamides; Z79.899 Other long term (current) drug therapy
CPT/HCPCS: 96365; J0696

== ENCOUNTER 2025-08-05 02:23 | Day surgery (SDC) | payer OTHER ==
[~2025-08-05 02:23] MED LIST changes: +CefTRIAXone Sodium 2,000 MG in NS 100 ML IV SCH
[2025-08-05 14:33] VITALS: BP 111/81
--- NOTE | 2025-08-05 16:35 | NUR ---
UPON ARRIVAL, PATIENT REPORTED TO CASSIDY RN THAT HE FELT DIZZYSINCE THIS MORNING. PATIENT TACHYCARDIC ON ARRIVAL BUT OTHER VSS. UPON DISCHARGE PATIENT REQUESTED HIS VS BE RECHECKED. HE REPORTED FEELING FAINT, WEAK, DIZZY, SHAKY, "NOT RIGHT". AT THAT TIME BP 79/50 MANUALLY, HR 160'S, IRREGULAR. CALLED ER CHARGE LISSETH TO REPORT TO HER THAT HW WAS COMING UP FOR EVALUATION RIGHT AWAY. JUST BEFORE TRANSPORT BP RECHECKED AND HE WAS THEN 70/40 MANUALLY. FAINT, RAPID HR IN APPROXIMATELY 160'S STILL. ON THE WAY TO ER PATIENT SAID, "HURRY, I FEEL LIKE IM FADING" REPORTED OFF TO PRIMARY RN IN ER ROOM 3. MULTIPLE STAFF PRESENT AT BEDSIDE.
[2025-08-06] MEDS ORDERED: Primidone50 MG PO (00:13)
[2025-08-06] MEDS ORDERED: PROP60 PO (00:14)
[2025-08-06] MEDS ORDERED: DILTIAZEM 24HR120 M2 PO (13:54)
== END 2025-08-05 15:15 | disposition home or self-care (01) ==
LOC: ATC 02:23
DX: I33.0 Acute and subacute infective endocarditis (principal); I10 Essential (primary) hypertension; K21.9 Gastro-esophageal reflux disease without esophagitis; Z87.440 Personal history of urinary (tract) infections; Z87.891 Personal history of nicotine dependence; Z79.899 Other long term (current) drug therapy; Z88.2 Allergy status to sulfonamides
CPT/HCPCS: 96365; J0696

== ENCOUNTER 2025-08-05 15:14 | Emergency (ER) | payer OTHER ==
[~2025-08-05] VITALS: Ht 185.4 cm; Wt 77.1 kg
[~2025-08-05 15:14] MED LIST changes: -CefTRIAXone Sodium 2,000 MG in NS 100 ML IV SCH
[2025-08-05] MEDS ORDERED: NS 1,000 ML IV ONE (15:27)
[2025-08-05] MEDS ORDERED: NS 1,000 ML IV SCH (15:30)
[2025-08-05 15:44] LABS: BASOPHILS ABSOLUTE AUTO 0.10 K/mm3 (0.00-0.23); BASOPHILS PERCENT AUTO 1 % (0-2); EOSINOPHILS ABSOLUTE AUTO 0.15 K/mm3 (0.00-0.68); EOSINOPHILS PERCENT AUTO 2 % (0-6); Hematocrit 41.7 % (37.0-53.0); Hemoglobin 13.4 g/dL (13.5-17.5); IMMATURE GRAN ABSOLUTE AUTO 0.08 K/mm3 (0.00-0.10); IMMATURE GRAN PERCENT AUTO 1 % (0-1); LYMPHOCYTES ABSOLUTE AUTO 1.83 K/mm3 (0.84-5.20); LYMPHOCYTES PERCENT AUTO 19 % (21-46); MONOCYTES ABSOLUTE AUTO 0.64 K/mm3 (0.16-1.47); MONOCYTES PERCENT AUTO 7 % (4-13); Mean Corpuscular HGB Conc 32.1 g/dL (31.5-36.5); Mean Corpuscular Volume 90 fL (80-100); NEUTROPHILS ABSOLUTE AUTO 7.02 K/mm3 (1.96-9.15); NEUTROPHILS PERCENT AUTO 72 % (41-73); NRBC ABSOLUTE 0.00 K/mm3 (0.00-0.02); NRBC Auto 0.0 /100 WBC (0.0-0.2); Platelet Count 300 K/mm3 (150-400); RDW Coefficient Variation 13.5 % (11.7-14.2); RDW Standard Deviation 44.0 fL (35.1-46.3)
[2025-08-05 15:56] LABS: Source, Urine Clean Catch
[2025-08-05 16:12] LABS: Bilirubin, Urine Neg (Neg); Color, Urine Yellow (P-Yellow); Glucose Qualitative, Urine Neg (Neg); Ketones, Urine Neg (Neg); Leukocyte Esterase, Urine Neg (Neg); Protein, Urine 1+ (Neg); Specific Gravity, Urine 1.015 (1.003-1.022); Urobilinogen, Urine NORM (Normal)
[2025-08-05 16:13] LABS: Alanine Aminotransfer (ALT/SGP 30.0 U/L (12-78); Albumin, Blood 3.3 g/dL (3.4-5.0); Albumin/Globulin Ratio 0.8 (0.8-1.8); Anion Gap 8.0 mmol/L (3-11); Aspartate Aminotrans (AST/SGOT 17.0 U/L (12-37); Bilirubin, Total 0.2 mg/dL (0.1-1.0); Blood Urea Nitrogen 22.0 mg/dL (8-24); CO2, Blood 28.0 mmol/L (21-32); Calcium, Blood 9.0 mg/dL (8.5-10.1); Chloride, Blood 103.0 mmol/L (98-108); Creatinine, Blood 1.1 mg/dL (0.60-1.20); Globulin, Blood 4.3 g/dL (2.2-4.0); Glucose, Blood 112.0 mg/dL (70-99); Magnesium, Blood 2.3 mg/dL (1.6-2.4); Phosphorus, Blood 2.4 mg/dL (2.5-4.9); Potassium, Blood 3.9 mmol/L (3.5-5.5); Sodium, Blood 135.0 mmol/L (136-145); Total Protein, Blood 7.6 g/dL (6.4-8.2)
[2025-08-05 17:45] VITALS: BP 142/78
[2025-08-06] MEDS ORDERED: Primidone50 MG PO (00:13)
[2025-08-06] MEDS ORDERED: PROP60 PO (00:14)
[2025-08-06] MEDS ORDERED: DILTIAZEM 24HR120 M2 PO (13:54)
== END 2025-08-05 17:55 | disposition home or self-care (01) ==
LOC: ER 15:14
PROVIDERS: Emergency Medicine
DX: I47.10 Supraventricular tachycardia, unspecified (principal); I95.9 Hypotension, unspecified; Z88.2 Allergy status to sulfonamides; Z79.899 Other long term (current) drug therapy; I10 Essential (primary) hypertension; K21.9 Gastro-esophageal reflux disease without esophagitis; Z87.891 Personal history of nicotine dependence
CPT/HCPCS: 36415; 71045; 71260; 80053; 83605; 83735; 83880; 84100; 84484; 85025; 87040; 93005; 93010; 96360-59; 99284-25; J7030; Q9967

== ENCOUNTER 2025-08-05 19:40 | Observation (INO) | payer OTHER ==
[~2025-08-05] VITALS: Ht 188 cm; Wt 77.0 kg
[2025-08-05] MEDS ORDERED: FLU VACC TS2025(65UP)/MF59C/PF 45 MCG/0.5 ML SYRINGE IM SCH (23:45)
[2025-08-05] MEDS ORDERED: Ondansetron HCl 2 MG / ML 2ML Vial IV PRN (23:45)
[2025-08-05] MEDS ORDERED: NS 1,000 ML IV ONE (23:45)
[2025-08-05] MEDS ORDERED: Potassium Phosphate Dibasic 30 MM in Dextrose 5% 500 ML IV ONE (23:45)
[2025-08-06] MEDS ORDERED: Primidone50 MG PO ×2 (00:13)
[2025-08-06] MEDS ORDERED: PROP60 PO ×2 (00:14)
[2025-08-06] MEDS ORDERED: Enoxaparin 40 MG/0.4 ML SYR SC SCH (01:20)
[2025-08-06 01:40] VITALS: BP 118/63
--- NOTE | 2025-08-06 04:05 | NUR ---
SHIFT SUMMARY PT ER ADMIT THIS SHIFT FOR SVT. PT EXPERIENCED AN EPISODE OF SVT WHILE AT [facility] WHILE BEING TREATED WITH ANTIBIOTICS FOR ENDOCARDITIS. PT WENT TO THE ER FOR A SHORT TIME BEFORE LEAVING AMA, AND THEN RETURNED LATER TO ER TO BE ADMITTED. PT HAS BEEN NSR ON TELE. HE DENIES PAIN. RESP E/U ON RA. PT DENIES DIZZINESS. PT RECEIVING KPHOS AT THIS TIME. WILL RECEIVE NORMAL SALINE PER ORDERS ONCE THAT IS COMPLETE. PT RESTING IN BED AT THIS TIME. DENIES NEEDS WHEN ASKED. PT ANTICIPAITING DC TODAY. BED IN LOWEST POSITION, CALL LIGHT WITHIN REACH.
--- NOTE | 2025-08-06 05:15 | NUR ---
TRANSFER REPORT GIVEN TO MEDICAL FLOOR NURSE, QUESTION AND CONCERNS ADDRESSED. TELE NOTIFIED OF TRANSFER. PT TAKEN TO 344 IN HOSPITAL BED. HOSPITALIST NOTIFIED.
[2025-08-06 05:22] VITALS: BP 111/70
[2025-08-06] MEDS ORDERED: NS 1,000 ML IV ONE (05:35)
--- NOTE | 2025-08-06 06:12 | NUR ---
TRANSFER NOTE PT TRANSFERRED FROM SURGICAL FLOOR. ORIENTED TO ROOM, CALL LIGHT, SAFETY AND FALL PRECAUTIONS. A&OX4, VSS. ABLE TO COMMUNICATE NEEDS APPROPRIATELY. DENIES CHEST PAIN/PRESSURE. DR. CHEN UP TO ROUND ON PT. REMAINS ON TELE. NO EVENTS ON TELE NOTED SINCE TRANSFER. NS STARTED PER EMAR. BED RAILS UP X 2, BED IN LOWEST POSITION, BED WHEELS LOCKED, PERSONAL BELONGINGS AND CALL LIGHT WITHIN REACH FOR SAFETY.
[2025-08-06] MEDS ORDERED: Acetaminophen 500MG/DP-Hydram 25MG HCL 1 Tab PO PRN (06:30)
[2025-08-06 07:12] LABS: BASOPHILS ABSOLUTE AUTO 0.12 K/mm3 (0.00-0.23); BASOPHILS PERCENT AUTO 2 % (0-2); EOSINOPHILS ABSOLUTE AUTO 0.19 K/mm3 (0.00-0.68); EOSINOPHILS PERCENT AUTO 3 % (0-6); Hematocrit 35.1 % (37.0-53.0); Hemoglobin 11.2 g/dL (13.5-17.5); IMMATURE GRAN ABSOLUTE AUTO 0.04 K/mm3 (0.00-0.10); IMMATURE GRAN PERCENT AUTO 1 % (0-1); LYMPHOCYTES ABSOLUTE AUTO 1.25 K/mm3 (0.84-5.20); LYMPHOCYTES PERCENT AUTO 17 % (21-46); MONOCYTES ABSOLUTE AUTO 0.57 K/mm3 (0.16-1.47); MONOCYTES PERCENT AUTO 8 % (4-13); Mean Corpuscular HGB Conc 31.9 g/dL (31.5-36.5); Mean Corpuscular Volume 90 fL (80-100); NEUTROPHILS ABSOLUTE AUTO 5.27 K/mm3 (1.96-9.15); NEUTROPHILS PERCENT AUTO 71 % (41-73); NRBC ABSOLUTE 0.00 K/mm3 (0.00-0.02); NRBC Auto 0.0 /100 WBC (0.0-0.2); Platelet Count 238 K/mm3 (150-400); RDW Coefficient Variation 13.7 % (11.7-14.2); RDW Standard Deviation 45.0 fL (35.1-46.3)
[2025-08-06 07:50] LABS: Alanine Aminotransfer (ALT/SGP 24.0 U/L (12-78); Albumin, Blood 2.7 g/dL (3.4-5.0); Albumin/Globulin Ratio 0.8 (0.8-1.8); Anion Gap 9.0 mmol/L (3-11); Aspartate Aminotrans (AST/SGOT 13.0 U/L (12-37); Bilirubin, Total 0.2 mg/dL (0.1-1.0); Blood Urea Nitrogen 20.0 mg/dL (8-24); CO2, Blood 26.0 mmol/L (21-32); Calcium, Blood 8.2 mg/dL (8.5-10.1); Chloride, Blood 104.0 mmol/L (98-108); Creatinine, Blood 0.78 mg/dL (0.60-1.20); Globulin, Blood 3.4 g/dL (2.2-4.0); Glucose, Blood 102.0 mg/dL (70-99); Potassium, Blood 4.0 mmol/L (3.5-5.5); Sodium, Blood 135.0 mmol/L (136-145); Total Protein, Blood 6.1 g/dL (6.4-8.2)
[2025-08-06 08:07] VITALS: BP 135/83
[2025-08-06] MEDS ORDERED: CefTRIAXone Sodium 2,000 MG in NS 100 ML IV ONE (12:40)
[2025-08-06] MEDS ORDERED: CEFTRIAXONE2 G1 IV (13:53)
[2025-08-06] MEDS ORDERED: DILTIAZEM 24HR120 M2 PO ×2 (13:54)
--- NOTE | 2025-08-06 14:51 | NUR ---
PATIENT D/C'D TO HOME. DC INSTRUCTIONS AND EDUCATION DISCUSSED WITH PATIENT AND COPY PROVIDED. PATIENT TO RESTART INFUSIONS AT [facility] TOMORROW. PATIENT DENIES ANY FURTHER QUESTIONS OR CONCERNS. RX MEDICATIONS FAXED TO [facility].
[2025-08-07] MEDS ORDERED: AMLODIPINE BESYL5 MG PO (14:36)
== END 2025-08-06 14:24 | disposition home or self-care (01) ==
LOC: ER 19:40 → ERHOLD 19:41 → MEDS 19:41 → SURS 08-06 01:34 → MEDS 08-06 05:16
PROVIDERS: ADMIT Internal Medicine
DX: I47.10 Supraventricular tachycardia, unspecified (principal); I10 Essential (primary) hypertension; K21.9 Gastro-esophageal reflux disease without esophagitis; Z87.891 Personal history of nicotine dependence; Z88.2 Allergy status to sulfonamides; Z79.899 Other long term (current) drug therapy
CPT/HCPCS: 36415; 80053; 85025; 93005; 93010; 93246; 96365; 96366; 96372; 96375; 99284; A9270; G0378; J0696; J1650; J7030; J7060

== ENCOUNTER 2025-08-07 02:26 | Day surgery (SDC) | payer OTHER ==
[~2025-08-07 02:26] MED LIST changes: +CefTRIAXone Sodium 2,000 MG in NS 100 ML IV SCH; +DILTIAZEM 24HR120 M2 PO; +PROP60 PO; +Primidone50 MG PO
[2025-08-07 14:30] VITALS: BP 96/69
[2025-08-07] MEDS ORDERED: AMLODIPINE BESYL5 MG PO (14:36)
== END 2025-08-07 14:53 | disposition home or self-care (01) ==
LOC: ATC 02:26
DX: I33.0 Acute and subacute infective endocarditis (principal); I10 Essential (primary) hypertension; K21.9 Gastro-esophageal reflux disease without esophagitis; Z87.891 Personal history of nicotine dependence; Z79.899 Other long term (current) drug therapy; Z88.2 Allergy status to sulfonamides
CPT/HCPCS: 96365; J0696

== ENCOUNTER 2025-08-08 11:27 | Emergency (ER) | payer OTHER ==
[~2025-08-08] VITALS: Ht 185.4 cm; Wt 77.1 kg
[~2025-08-08 11:27] MED LIST changes: +AMLODIPINE BESYL5 MG PO; -CefTRIAXone Sodium 2,000 MG in NS 100 ML IV SCH
[2025-08-08 11:44] VITALS: BP 109/62
[2025-08-08 14:33] LABS: BASOPHILS ABSOLUTE AUTO 0.09 K/mm3 (0.00-0.23); BASOPHILS PERCENT AUTO 1 % (0-2); EOSINOPHILS ABSOLUTE AUTO 0.03 K/mm3 (0.00-0.68); EOSINOPHILS PERCENT AUTO 0 % (0-6); Hematocrit 39.2 % (37.0-53.0); Hemoglobin 12.5 g/dL (13.5-17.5); IMMATURE GRAN ABSOLUTE AUTO 0.07 K/mm3 (0.00-0.10); IMMATURE GRAN PERCENT AUTO 1 % (0-1); LYMPHOCYTES ABSOLUTE AUTO 0.81 K/mm3 (0.84-5.20); LYMPHOCYTES PERCENT AUTO 8 % (21-46); MONOCYTES ABSOLUTE AUTO 0.49 K/mm3 (0.16-1.47); MONOCYTES PERCENT AUTO 5 % (4-13); Mean Corpuscular HGB Conc 31.9 g/dL (31.5-36.5); Mean Corpuscular Volume 91 fL (80-100); NEUTROPHILS ABSOLUTE AUTO 8.54 K/mm3 (1.96-9.15); NEUTROPHILS PERCENT AUTO 85 % (41-73); NRBC ABSOLUTE 0.00 K/mm3 (0.00-0.02); NRBC Auto 0.0 /100 WBC (0.0-0.2); Platelet Count 221 K/mm3 (150-400); RDW Coefficient Variation 13.7 % (11.7-14.2); RDW Standard Deviation 45.4 fL (35.1-46.3)
[2025-08-08 15:10] LABS: Anion Gap 8.0 mmol/L (3-11); Blood Urea Nitrogen 17.0 mg/dL (8-24); CO2, Blood 26.0 mmol/L (21-32); Calcium, Blood 9.0 mg/dL (8.5-10.1); Chloride, Blood 104.0 mmol/L (98-108); Creatinine, Blood 0.9 mg/dL (0.60-1.20); Glucose, Blood 112.0 mg/dL (70-99); Potassium, Blood 4.4 mmol/L (3.5-5.5); Sodium, Blood 134.0 mmol/L (136-145)
[2025-08-08] MEDS ORDERED: CefTRIAXone Sodium 1,000 MG in NS 100 ML IV ONE (15:45)
[2025-08-08] MEDS ORDERED: FentaNYL Citrate 50 MCG/ML 2 ML Injection IV ONE (16:15)
[2025-08-08] MEDS ORDERED: Milk 150ML/Molasses 150ML (300ML Total) PR ONE (16:25)
== END 2025-08-08 17:52 | disposition home or self-care (01) ==
LOC: ER 11:27
PROVIDERS: Student in an Organized Health Care Education/Training Program
DX: K59.00 Constipation, unspecified (principal); K57.30 Diverticulosis of large intestine without perforation or abscess without bleeding; I10 Essential (primary) hypertension; K21.9 Gastro-esophageal reflux disease without esophagitis; Z87.891 Personal history of nicotine dependence; Z88.2 Allergy status to sulfonamides; Z79.899 Other long term (current) drug therapy
CPT/HCPCS: 36415; 74177; 80048; 83690; 85025; 96365-59; 96375; 99283-25; J0696; J3010; Q9967

== ENCOUNTER 2025-08-09 04:26 | Day surgery (SDC) | payer OTHER ==
[2025-08-09] MEDS ORDERED: CefTRIAXone Sodium 2,000 MG in NS 100 ML IV SCH (06:00)
[2025-08-09 14:40] VITALS: BP 117/87
== END 2025-08-09 14:53 | disposition home or self-care (01) ==
LOC: ATC 04:26
DX: I33.0 Acute and subacute infective endocarditis (principal); I10 Essential (primary) hypertension; K21.9 Gastro-esophageal reflux disease without esophagitis; Z87.891 Personal history of nicotine dependence; Z79.899 Other long term (current) drug therapy; Z88.2 Allergy status to sulfonamides
CPT/HCPCS: 96365; J0696

== ENCOUNTER 2025-08-10 02:50 | Day surgery (SDC) | payer OTHER ==
[~2025-08-10 02:50] MED LIST changes: +CefTRIAXone Sodium 2,000 MG in NS 100 ML IV SCH
[2025-08-10 14:32] VITALS: BP 123/65
== END 2025-08-10 14:57 | disposition home or self-care (01) ==
LOC: ATC 02:50
DX: I33.0 Acute and subacute infective endocarditis (principal); I10 Essential (primary) hypertension; K21.9 Gastro-esophageal reflux disease without esophagitis; D64.9 Anemia, unspecified; Z87.891 Personal history of nicotine dependence; Z79.899 Other long term (current) drug therapy; Z88.2 Allergy status to sulfonamides
CPT/HCPCS: 96365; J0696

== ENCOUNTER 2025-08-11 00:40 | Day surgery (SDC) | payer OTHER ==
[~2025-08-11 00:40] MED LIST changes: -CefTRIAXone Sodium 2,000 MG in NS 100 ML IV SCH
[2025-08-11] MEDS ORDERED: CefTRIAXone Sodium 2,000 MG in NS 100 ML IV SCH (06:00)
[2025-08-11 14:27] VITALS: BP 121/59
== END 2025-08-11 14:49 | disposition home or self-care (01) ==
LOC: ATC 00:40
DX: I33.0 Acute and subacute infective endocarditis (principal); I10 Essential (primary) hypertension; K21.9 Gastro-esophageal reflux disease without esophagitis; Z87.891 Personal history of nicotine dependence; Z88.2 Allergy status to sulfonamides
CPT/HCPCS: 96365; J0696

== ENCOUNTER 2025-08-12 03:59 | Day surgery (SDC) | payer OTHER ==
[~2025-08-12 03:59] MED LIST changes: +CefTRIAXone Sodium 2,000 MG in NS 100 ML IV SCH
[2025-08-12 14:48] VITALS: BP 117/64
== END 2025-08-12 15:15 | disposition home or self-care (01) ==
LOC: ATC 03:59
DX: I33.0 Acute and subacute infective endocarditis (principal); I10 Essential (primary) hypertension; K21.9 Gastro-esophageal reflux disease without esophagitis; Z87.891 Personal history of nicotine dependence; Z79.899 Other long term (current) drug therapy; Z88.2 Allergy status to sulfonamides
CPT/HCPCS: 96365; 99211; J0696

== ENCOUNTER 2025-08-13 06:33 | Day surgery (SDC) | payer OTHER ==
[2025-08-13 15:30] VITALS: BP 124/56
== END 2025-08-13 14:57 | disposition home or self-care (01) ==
LOC: ATC 06:33
DX: I33.0 Acute and subacute infective endocarditis (principal); I10 Essential (primary) hypertension; K21.9 Gastro-esophageal reflux disease without esophagitis; Z87.891 Personal history of nicotine dependence; Z79.899 Other long term (current) drug therapy; Z88.2 Allergy status to sulfonamides
CPT/HCPCS: 96365; J0696

== ENCOUNTER 2025-08-14 09:29 | Day surgery (SDC) | payer OTHER ==
[2025-08-14 14:25] VITALS: BP 117/60
== END 2025-08-14 14:53 | disposition home or self-care (01) ==
LOC: ATC 09:29
DX: I33.0 Acute and subacute infective endocarditis (principal); I10 Essential (primary) hypertension; K21.9 Gastro-esophageal reflux disease without esophagitis; Z79.899 Other long term (current) drug therapy; Z87.891 Personal history of nicotine dependence; Z88.2 Allergy status to sulfonamides
CPT/HCPCS: 96365; 99211; J0696

== ENCOUNTER 2025-08-15 04:13 | Day surgery (SDC) | payer OTHER ==
[2025-08-15 14:27] VITALS: BP 118/59
== END 2025-08-15 14:53 | disposition home or self-care (01) ==
LOC: ATC 04:13
DX: I33.0 Acute and subacute infective endocarditis (principal); I10 Essential (primary) hypertension; K21.9 Gastro-esophageal reflux disease without esophagitis; E87.1 Hypo-osmolality and hyponatremia; D64.9 Anemia, unspecified; N39.0 Urinary tract infection, site not specified; R25.1 Tremor, unspecified; Z79.899 Other long term (current) drug therapy; Z87.891 Personal history of nicotine dependence; Z88.2 Allergy status to sulfonamides
CPT/HCPCS: 96365; 99211; J0696

== ENCOUNTER 2025-08-16 00:43 | Day surgery (SDC) | payer OTHER ==
[~2025-08-16 00:43] MED LIST changes: -CefTRIAXone Sodium 2,000 MG in NS 100 ML IV SCH
[2025-08-16] MEDS ORDERED: CefTRIAXone Sodium 2,000 MG in NS 100 ML IV SCH (01:00)
[2025-08-16 14:37] VITALS: BP 133/78
== END 2025-08-16 14:58 | disposition home or self-care (01) ==
LOC: ATC 00:43
DX: I33.0 Acute and subacute infective endocarditis (principal); I10 Essential (primary) hypertension; K21.9 Gastro-esophageal reflux disease without esophagitis; Z87.891 Personal history of nicotine dependence; Z88.8 Allergy status to other drugs, medicaments and biological substances; Z79.899 Other long term (current) drug therapy
CPT/HCPCS: 96365; J0696

== ENCOUNTER 2025-08-17 00:16 | Day surgery (SDC) | payer OTHER ==
[2025-08-17] MEDS ORDERED: CefTRIAXone Sodium 2,000 MG in NS 100 ML IV SCH (01:00)
[2025-08-17 14:48] VITALS: BP 118/65
== END 2025-08-17 15:09 | disposition home or self-care (01) ==
LOC: ATC 00:16
DX: I33.0 Acute and subacute infective endocarditis (principal); I10 Essential (primary) hypertension; K21.9 Gastro-esophageal reflux disease without esophagitis; N39.0 Urinary tract infection, site not specified; E87.1 Hypo-osmolality and hyponatremia; R33.9 Retention of urine, unspecified; D64.9 Anemia, unspecified; D72.829 Elevated white blood cell count, unspecified; G25.2 Other specified forms of tremor; Z87.891 Personal history of nicotine dependence; Z79.899 Other long term (current) drug therapy; Z88.2 Allergy status to sulfonamides
CPT/HCPCS: 96365; J0696

== ENCOUNTER 2025-08-18 01:50 | Day surgery (SDC) | payer OTHER ==
[~2025-08-18 01:50] MED LIST changes: +CefTRIAXone Sodium 2,000 MG in NS 100 ML IV SCH
[2025-08-18 14:30] VITALS: BP 131/68
== END 2025-08-18 14:57 | disposition home or self-care (01) ==
LOC: ATC 01:50
DX: I33.0 Acute and subacute infective endocarditis (principal); I10 Essential (primary) hypertension; K21.9 Gastro-esophageal reflux disease without esophagitis; N39.0 Urinary tract infection, site not specified; E87.1 Hypo-osmolality and hyponatremia; R33.9 Retention of urine, unspecified; D64.9 Anemia, unspecified; D72.829 Elevated white blood cell count, unspecified; G25.2 Other specified forms of tremor; Z87.891 Personal history of nicotine dependence; Z79.899 Other long term (current) drug therapy; Z88.2 Allergy status to sulfonamides
CPT/HCPCS: 96365; J0696

== ENCOUNTER 2025-08-23 00:33 | Day surgery (SDC) | payer OTHER ==
[~2025-08-23 00:33] MED LIST changes: -CefTRIAXone Sodium 2,000 MG in NS 100 ML IV SCH
[2025-08-23] MEDS ORDERED: CefTRIAXone Sodium 2,000 MG in NS 100 ML IV SCH (01:00)
[2025-08-23 14:49] VITALS: BP 115/62
== END 2025-08-23 15:03 | disposition home or self-care (01) ==
LOC: ATC 00:33
DX: I33.0 Acute and subacute infective endocarditis (principal); I10 Essential (primary) hypertension; K21.9 Gastro-esophageal reflux disease without esophagitis; Z87.891 Personal history of nicotine dependence; Z79.899 Other long term (current) drug therapy; Z88.2 Allergy status to sulfonamides
CPT/HCPCS: 96365; J0696

== ENCOUNTER 2025-08-25 07:54 | Day surgery (SDC) | payer OTHER ==
[~2025-08-25 07:54] MED LIST changes: +CefTRIAXone Sodium 2,000 MG in NS 100 ML IV SCH
[2025-08-25 13:35] VITALS: BP 119/64
== END 2025-08-25 15:00 | disposition home or self-care (01) ==
LOC: ATC 07:54
DX: I33.0 Acute and subacute infective endocarditis (principal); I10 Essential (primary) hypertension; K21.9 Gastro-esophageal reflux disease without esophagitis; Z87.891 Personal history of nicotine dependence; Z88.2 Allergy status to sulfonamides
CPT/HCPCS: 96365; J0696

== ENCOUNTER 2025-08-26 00:47 | Day surgery (SDC) | payer OTHER ==
[~2025-08-26 00:47] MED LIST changes: -CefTRIAXone Sodium 2,000 MG in NS 100 ML IV SCH
[2025-08-26] MEDS ORDERED: CefTRIAXone Sodium 2,000 MG in NS 100 ML IV SCH (01:00)
[2025-08-26 14:31] VITALS: BP 116/66
== END 2025-08-26 14:52 | disposition home or self-care (01) ==
LOC: ATC 00:47
DX: I33.0 Acute and subacute infective endocarditis (principal); I10 Essential (primary) hypertension; K21.9 Gastro-esophageal reflux disease without esophagitis; Z87.891 Personal history of nicotine dependence; Z79.899 Other long term (current) drug therapy; Z88.2 Allergy status to sulfonamides
CPT/HCPCS: 96365; J0696